=== PATIENT | female | born 1935 | race African-American/Black ===

== ENCOUNTER → 2017-08-06 | Emergency (ER) | payer OTHER ==
[~2017-08-06] VITALS: Ht 160 cm; Wt 56.7 kg
[~2017-08-06] MED LIST: NIFE60TA3; TENORMIN50 M1
== END | disposition home or self-care (01) ==
LOC: ER 20:11
DX: R53.81 Other malaise (principal); C78.7 Secondary malignant neoplasm of liver and intrahepatic bile duct